=== PATIENT | male | born 1955 | race Caucasian/White ===

== ENCOUNTER 2024-01-03 20:23 | Emergency (ER) | payer OTHER, SELFPAY ==
[2024-01-03 20:36] VITALS: BP 163/79
[2024-01-03 20:44] VITALS: BP 169/112
[2024-01-03 20:54] LABS: % Basophils 0.4 % (0-2); % Eosinophils 2.9 % (0-6); % Immature Granulocytes 0.4 % (0-0.5); % Lymphocytes 21.9 % (20.5-51.1); % Monocytes 8.7 % (1.7-9.3); % Neutrophils 65.7 % (42.2-75.2); Absolute Eosinophils 0.3 10^3/uL (0-0.7); Absolute Lymphocytes 2.3 10^3/uL (1.2-3.4); Absolute Monocytes 0.9 10^3/uL (0.1-0.6); Hematocrit 45.1 % (39.0-52.0); Hemoglobin 16.6 g/dL (13.0-18.0); Mean Corp Hgb Conc. 36.8 g/dL (33.0-37.0); Mean Corpuscular Hgb 34.2 pg (27.0-31.0); Mean Corpuscular Volume 92.8 fL (80.0-94.0); Mean Platelet Volume 10.2 fL (7.4-10.4); Nucleated Red Blood Cells % 0 % (-); Platelet Count 193 10^3/uL (130-400); Red Blood Cell Count 4.86 10^6/uL (4.70-6.10); Red Cell Dist. Width 14.4 % (11.5-14.5); White Blood Cell Count 10.7 10^3/uL (4.8-10.8)
[2024-01-03 21:00] VITALS: BP 160/84
[2024-01-03] MEDS: CARDIZEM 20 MG IV (21:21)
[2024-01-03] MEDS: NSS 500 IV (21:22)
[2024-01-03 21:23] LABS: ALT (SGPT) 80 U/L (0-50); AST (SGOT) 79 U/L (17-59); Albumin 5.5 g/dl (3.5-5.0); Alkaline Phosphatase 84 U/L (38-126); Blood Urea Nitrogen 25 mg/dl (9-20); Carbon Dioxide 20 mmol/L (22-30); Chloride 107 mmol/L (98-107); Glucose 141 mg/dl (70-99); Potassium 4.4 mmol/L (3.5-5.1); Sodium 140 mmol/L (135-145); Total Bilirubin 1.5 mg/dl (0.2-1.3); Total Protein 8.1 g/dl (6.3-8.2); eGFR > 60.00
[2024-01-03] MEDS: CARDIZEM 125 IV (21:26)
[2024-01-03 22:00] VITALS: BP 141/80
--- NOTE | 2024-01-03 22:16 | ED.GENMED ---
History of Present Illness
General
Chief Complaint: Heart Rate Problem
Source: patient
Exam Limitations: none
Time Seen by Provider: 01/03/24 21:00
Nursing documentation reviewed up to this point in time: agreed with
History of Present Illness
History of Present Illness:
Patient with history of paroxysmal atrial fibrillation on Xarelto, presents to ED secondary to recurrent chest palpitations starting this morning. Patient feels as though he is back in atrial fibrillation rhythm. Patient's last episode was
approximately 2 years ago, at which time he received cardiac ablation. Denies shortness of breath. Denies dizziness. Denies nausea feeling. Denies recent illness. Denies recent change in diet. Patient states that he drinks enough water during
the day. Patient was started on Lyrica for the first time 1 week ago, which he is wondering may be contributing to his presentation.
Past History
Past History
ED Past Medical History: Arrthythmia (Atrial fib), Asthma, CAD, GERD (Hiatal hernia), HTN, Hypercholesterolemia, [place] (X2) and Other (possible kidney stone, Hernia)
ED Past Surgical History: Cardiac (Stent X 1)
Social History
Tobacco: Former smoker
Alcohol: Occasional
Drug: None
Personal:
Living: with family
Employment: Employed
Family History
Family History: Other (Noncontributory)
Review of Systems
Review of Systems
Allergies reviewed?: Yes
All Other Systems: ROS reviewed and negative except as documented in HPI and ROS
Constitutional: Reports no symptoms
EENT: Reports no symptoms
Respiratory: Reports no symptoms
Cardiac: Reports palpitations
ABD/GI: Reports no symptoms
: Reports no symptoms
Musculoskeletal: Reports no symptoms
Skin: Reports no symptoms
Neurological: Reports no symptoms
Phy Exam
Physical Exam
Physical Exam:
Physical Exam
General: no apparent distress, not acutely ill. afebrile
Head: nc/at. eomi
Neck: supple. no meningeal signs.
Heart: irregularly irregular, no murmur. equal radial pulses.
Lungs: no acute respiratory distress. clear bilaterally
Abdomen: normal bowel sounds. not tender.
Neuro: alert and oriented. no focal neurological deficits
Skin: no rash
Psychiatric: well kept. interactive and cooperative
Extremities: no edema. no calf tenderness.
Course
Orders/Labs/Results
Orders:
Orders
01/03/24 20:27
EKG [Electrocardiogram (*1)] Urgent
Reason for Study: Chest Pain
EKG- Treatment ONCE
01/03/24 20:46
Complete Blood Count/With Diff Urgent
Comprehensive Metabolic Panel Urgent
01/03/24 21:16
0.9% Sodium Chloride 500 ml [Nss] 500 ml IV BOLUS
Diltiazem HCl [Cardizem] 20 mg IV NOW STA
01/03/24 21:30
Diltiazem 125 mg/125 ml Nss [Cardizem] 125 mg in 125 ml IV PER PROTOCOL
Initial dose in mg/hr, then titrate:: 5
Titrate to keep:: Heart rate 80-100 bpm
Titrate by mg/hr:: 5 mg/hr
Frequency of titrations (minutes):: 15
Maximum dose in mg/hr:: 15
01/03/24 22:38
Electrocardiogram (*1) Urgent
Reason for Study: Atrial Fibrillation
EKG- Treatment ONCE
01/03/24 23:30
Diltiazem Extended Release [Cardizem Cd] 120 mg PO NOW STA
Abnormal Lab Results
01/03/24
20:46
MCH 34.2 H pg
(27.0-31.0)
Absolute Neuts (auto) 7.0 H 10^3/uL
(1.4-6.5)
Absolute Monos (auto) 0.9 H 10^3/uL
(0.1-0.6)
Carbon Dioxide 20 L mmol/L
(22-30)
BUN 25 H mg/dl
(9-20)
Glucose 141 H mg/dl
(70-99)
Total Bilirubin 1.5 H mg/dl
(0.2-1.3)
AST 79 H U/L
(17-59)
ALT 80 H U/L
(0-50)
Albumin 5.5 H g/dl
(3.5-5.0)
01/03/24 20:46
01/03/24 20:46
Vital Signs
Initial and Last Documented VS:
Initial Vital Signs
Temp Pulse Pulse Ox
98.7 F 119 98
01/03/24 20:33 01/03/24 20:33 01/03/24 20:33
Last Documented Vital Signs
Temp Pulse Resp BP Pulse Ox
98.7 F 86 21 154/78 92
01/03/24 20:33 01/03/24 23:18 01/03/24 23:18 01/03/24 23:01 01/03/24 23:18
MDM/Problems Addressed
MDM/Problems Addressed:
History exam consistent with recurrent rapid atrial fibrillation. Patient started on Cardizem infusion, with improvement in heart rate as well as his symptoms. Discussed treatment options, including cardioversion versus making adjustments, along
with outpatient follow-up. At this time, patient feels comfortable going home. As such, after discussion with Dr. Haywood, cardiology on-call, will increase diltiazem to 120 mg twice daily, as well as urgent outpatient follow-up.
Critical care statement: A total of 40 minutes of critical care time was provided for this patient. This includes management of unstable vital signs, evaluation of the patient at bedside, reviewing the patient's pertinent medical records, discussion
with consultants, review of old EKGs and review of pertinent medical records. This time with separate from time utilized to perform the aforementioned documented procedures
*EKG
Interpreted by ED Provider?: Yes
EKG Intrepretation Date: 01/03/24
Heart Rate: 119
Rate: tachycardiac
Rhythm: a-fib
Gardner: normal axis
Interval: normal interval
*Critical Care Note
Total Time (30-74mins, 75-104mins- exclusive of procedures): 40 min
ED Attending Note
-
Portions of this chart may have been created with voice recognition software.� Occasional wrong word or��sound alike� substitutions may have occurred due to the inherent limitations of voice recognition software.
Discharge Plan
Departure
Patient Disposition: Home (Routine Discharge)
Date of Disposition: 01/03/24
Time of Disposition: 23:23
Patient with high blood pressure during this ER visit?: Yes
Condition: Good
Discharge Problem:
Atrial fibrillation, rapid
Instructions: Atrial Fibrillation (DC)
Prescriptions:
No Action
lysine 500 MG tablet
500 mg PO DAILY
coenzyme Q10 [Co Q-10] 100 MG capsule
100 mg PO DAILY
krill oil 500 MG capsule
1,000 mg PO DAILY
metoprolol tartrate 100 MG tablet
100 mg PO BID
atorvastatin 80 MG tablet
80 mg PO DAILY
metformin 500 mg Tablet
500 mg PO BID
isosorbide mononitrate 30 mg Tablet Extended Release 24 Hr
30 mg PO DAILY
therapeutic multivitamin Tablet
1 tab PO DAILY
aspirin 81 mg Tablet,Chewable
81 mg PO DAILY
losartan 100 mg Tablet
100 mg PO DAILY
Xarelto 20 mg Tablet
20 mg PO QPM
Jardiance 10 mg Tablet
10 mg PO DAILY
diltiazem HCl 120 mg Capsule,Extended Release 24hr
120 mg PO DAILY Qty: 90 5RF
pregabalin 75 mg capsule
75 mg PO QPM
Patient Comments:
01/03/2024: last filled 12/19/23, 30 tabs for 30 days from [id number]
tramadol 50 mg tablet
50 mg PO BID PRN (Reason: moderate pain)
Patient Comments:
01/03/2024: last filled 12/19/23, 60 tabs for 30 days from [id number]
Referrals:
Ortega Bledsoe MD [Active] -
Ana Seymour MD [Family Provider] -
Activity Restrictions/Additional Instructions:
As discussed, please increase diltiazem to twice daily along with metoprolol. 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 Please consider return to ED with worsening symptoms, i.e. i.e. dizziness/chest
pain/shortness of breath/nausea.
Interventions
Interventions:
*Risk Screen - Suicide Last Done: 01/03/24 20:33
*General Assessment Last Done: 01/03/24 20:33
*Neglect/Abuse Screening Last Done: 01/03/24 20:33
ED- Fall Risk Assessment Last Done: 01/03/24 20:55
*ED COVID-19 Vaccine History Last Done: 01/03/24 20:55
*Nursing Disposition Last Done: 01/03/24 23:39
ED- Cardiac Assessment Last Done: 01/03/24 20:55
ED- Pulmonary Assessment Last Done: 01/03/24 20:55
Discharge Date and Time
Discharge Date/Time: 01/03/24 23:39
Print Language: HEBREW
[2024-01-03 23:01] VITALS: BP 154/78
[2024-01-03] MEDS: CARDIZEM CD 120 MG PO (23:38)
== END 2024-01-03 23:39 | disposition home or self-care (01) ==
LOC: EMR 20:23
PROVIDERS: Emergency Medicine; EMERGENCY PHYSICIAN Emergency Medicine; FAMILY PHYSICIAN Emergency Medicine
DX: I48.91 Unspecified atrial fibrillation (principal); J45.909 Unspecified asthma, uncomplicated; I25.10 Atherosclerotic heart disease of native coronary artery without angina pectoris; I10 Essential (primary) hypertension; E78.00 Pure hypercholesterolemia, unspecified; I25.2 Old myocardial infarction; K21.9 Gastro-esophageal reflux disease without esophagitis; Z79.01 Long term (current) use of anticoagulants; Z87.891 Personal history of nicotine dependence; Z95.5 Presence of coronary angioplasty implant and graft
CPT/HCPCS: 99291; 96374; 96376; 96361; 80053; 85025; 93005

== ENCOUNTER → 2024-06-19 07:45 | Outpatient (REF) | payer OTHER, SELFPAY | LOC: HWRAD 07:45 | PROVIDERS: ATTENDING PHYSICIAN Internal Medicine Rheumatology; FAMILY PHYSICIAN Emergency Medicine | DX: M25.561 Pain in right knee (principal); M79.671 Pain in right foot | CPT/HCPCS: 73560; 73565; 73630 ==

== ENCOUNTER → 2024-10-22 08:06 | Outpatient (REF) | payer OTHER, SELFPAY | LOC: HWRCS 08:06 | PROVIDERS: ATTENDING PHYSICIAN Internal Medicine; FAMILY PHYSICIAN Emergency Medicine | DX: I25.119 Atherosclerotic heart disease of native coronary artery with unspecified angina pectoris (principal) | CPT/HCPCS: 93306 ==